=== PATIENT | female | born 1965 | race Caucasian/White ===

== ENCOUNTER 2018-11-15 10:52 | Emergency (ER) | payer MEDICAID ==
--- NOTE | 2018-11-15 13:24 | CT ---
CT HEAD WITHOUT CONTRAST: Date: 11/15/18 Multiple axial tomograms obtained through the head without IV enhancement. INDICATION: Fall with head injury. Comparison made to prior head CT from April 2012. FINDINGS: The ventricles have normal size and position. Increased CSF in the posterior fossa is again noted, suggesting posterior fossa subdural hygromas, st able. There is no evidence of acute hemorrhage or mass. There is opacification of the right maxillary sinus, which is suboptimally evaluated. Old bur hole in the left frontal bone from prior surgical procedure. Patient had a previous left subd ural hematoma, described on prior studies. There is opacification of the left middle ear cavity and left mastoid air cells. There is abnormal calcific density seen in both external auditory canals suggesting foreign material or possibly coarsely calcified debris. Recommend direct evaluation of the external auditory canals. IMPRESSION: 1. No acute intracranial process. 2. Chronic posterior fossa subdural hygromas appear stable. 3. Abnormal density in both external auditory canals. Assess for foreign material. 4. Mucosal edema in right maxillary sinus and diffuse opacification of the left middle ear and masto id air cells. POS: KELLI
== END 2018-11-15 12:20 | disposition home or self-care (01) ==
LOC: ERS 10:52
DX: S00.03XA Contusion of scalp, initial encounter (principal); H61.899 Other specified disorders of external ear, unspecified ear; W19.XXXA Unspecified fall, initial encounter
CPT/HCPCS: 70450

== ENCOUNTER 2024-01-28 09:21 | Inpatient (IN) | payer OTHER ==
[2024-01-28] MEDS ORDERED: Ondansetron PF 4 MG/2 ML Vial ONE (09:50)
[2024-01-28] MEDS ORDERED: Ketorolac Tromethamine 30 MG (1 mL) VIAL ONE (09:50)
[2024-01-28 09:59] LABS: #Basophils Less than 0.03 10x3/uL (0.0-0.2); %Basophils 0.2 % (0.0-1.0); %Eosinophils 1.9 % (0.0-10.0); %Lymphocytes 29.5 % (21.0-51.0); %Monocytes 9.5 % (0.0-10.0); %Neutrophils 58.7 % (42.0-75.0); Hematocrit 28.1 % (36.0-47.0); Hemoglobin 8.6 g/dL (12.0-16.0); Mean Corpuscular HGB CONC 30.6 g/dL (32.0-36.0); Mean Corpuscular Hemoglobin 25.5 pg (27.0-31.0); Mean Corpuscular Volume 83.4 fL (78.0-98.0); Mean Platelet Volume 9.6 fL (7.4-10.4); Platelet Count 233 10x3/uL (130-400); RBC Distribution Width 15.3 % (11.5-14.5); Red Blood Cell (RBC) Count 3.37 mill/uL (4.20-5.40)
[2024-01-28 10:15] LABS: ALT (SGPT) 15 U/L (8-55); AST (SGOT) 20 U/L (5-34); Albumin 3.4 g/dL (3.5-5.0); Alkaline Phosphatase 90 U/L (40-110); Anion Gap 14 mmol/L (10-20); BUN (Urea Nitrogen) 20 mg/dL (9.8-20.1); Bilirubin, Total 0.2 mg/dL (0.2-1.2); Calc. Creatinine Clearance 0 mL/min (70-130); Calcium 9.2 mg/dL (7.8-10.44); Carbon Dioxide 20 mmol/L (22-29); Chloride 111 mmol/L (98-107); Estimated GFR 82; Globulin 3.2 g/dL (2.4-3.5); Glucose 133 mg/dL (70-105); Lipase 46 U/L (8-78); Magnesium 1.7 mg/dL (1.6-2.6); Protein, Total 6.6 g/dL (6.0-8.3); Sodium 141 mmol/L (136-145)
[2024-01-28 10:26] LABS: Bacteria/HPF None Seen HPF (None Seen); Bilirubin Negative (Negative); Blood, Urine Negative (Negative); CAUTI Indications for Culture Dysuria,urgency,freq; Clarity Clear (Clear); Glucose, Urine (Dipstick) Normal (Negative); Ketone, Urine 10 mg/dL (Negative); Leukocyte Negative Leu/uL (Negative); Nitrite Negative (Negative); Protein, Urine (Dipstick) Negative (Neg-Trace); RBC/HPF 0-3 HPF (0-3); Specific Gravity, Urine 1.017 (1.002-1.036); Squamous Epithelial 0-3 HPF (0-3); Urobilinogen Normal mg/dL (Less than 2); WBC/HPF 0-3 HPF (0-3)
[2024-01-28 10:27] LABS: Urine Culture Reflex No No
[2024-01-28] MEDS ORDERED: Iopamidol-370 76% 500 ML MDV (1 ML CHARGE) ONE (11:32)
[2024-01-28] MEDS ORDERED: Acetaminophen 500 MG TAB PO PRN (14:34)
[2024-01-28] MEDS ORDERED: Ketorolac Tromethamine 30 MG (1 mL) VIAL IVP PRN (16:00)
[2024-01-28 16:44] LABS: Iron 15 ug/dL (50-170); Iron Binding Capacity, Total 351 mcg/dL (265-497)
[2024-01-28] MEDS: Lactated Ringer's 1,000 ML IV SCH (16:53)
[2024-01-28] MEDS: Polyethylene Glycol 3350 17 GM Packet PO SCH ×2 (16:53→17:51)
[2024-01-28] MEDS ORDERED: Ondansetron PF 4 MG/2 ML Vial IVP PRN (17:32)
[2024-01-28] MEDS ORDERED: Sodium Ferric Gluconate 125 MG in Sodium Chloride 0.9% 100 ML IVPB SCH (21:00)
[2024-01-28] MEDS: Simvastatin 10 MG TAB PO SCH (21:51)
[2024-01-28] MEDS: Senokot S 8.6-50 MG TAB PO SCH (21:51)
[2024-01-28] MEDS: clonazePAM 0.5 MG TAB PO SCH (21:51)
[2024-01-28] MEDS: OLANZapine 5 MG TAB PO SCH (21:51)
[2024-01-29 04:26] LABS: #Basophils Less than 0.03 10x3/uL (0.0-0.2); %Basophils 0.5 % (0.0-1.0); %Eosinophils 2.8 % (0.0-10.0); %Lymphocytes 31.5 % (21.0-51.0); %Monocytes 14.6 % (0.0-10.0); %Neutrophils 50.3 % (42.0-75.0); Mean Corpuscular HGB CONC 30.8 g/dL (32.0-36.0); Mean Corpuscular Hemoglobin 25.7 pg (27.0-31.0); Mean Corpuscular Volume 83.6 fL (78.0-98.0); Platelet Count 225 10x3/uL (130-400); RBC Distribution Width 15.3 % (11.5-14.5); Red Blood Cell (RBC) Count 3.11 mill/uL (4.20-5.40)
[2024-01-29 04:52] LABS: ALT (SGPT) 7 U/L (8-55); AST (SGOT) 16 U/L (5-34); Albumin 2.9 g/dL (3.5-5.0); Alkaline Phosphatase 75 U/L (40-110); Anion Gap 15 mmol/L (10-20); BUN (Urea Nitrogen) 15 mg/dL (9.8-20.1); Bilirubin, Total 0.3 mg/dL (0.2-1.2); Calc. Creatinine Clearance 65 mL/min (70-130); Calcium 8.9 mg/dL (7.8-10.44); Carbon Dioxide 21 mmol/L (22-29); Chloride 112 mmol/L (98-107); Estimated GFR 94; Globulin 2.6 g/dL (2.4-3.5); Glucose 72 mg/dL (70-105); Potassium 4.5 mmol/L (3.5-5.1); Protein, Total 5.5 g/dL (6.0-8.3); Sodium 143 mmol/L (136-145)
[2024-01-29] MEDS: Levothyroxine Sodium 25 MCG TAB PO SCH (05:48)
[2024-01-29] MEDS: Ferrous Sulfate 325 MG TAB PO SCH (09:48)
[2024-01-29] MEDS: Lisinopril 20 MG TAB PO SCH (09:51)
[2024-01-29] MEDS: Hydrochlorothiazide 25 MG TAB PO SCH (09:52)
[2024-01-29] MEDS: Enoxaparin 40 MG (0.4 mL) SYRINGE SC SCH (09:53)
[2024-01-29] MEDS: Sodium Ferric Gluconate 250 MG in Sodium Chloride 0.9% 250 ML 250 ML IVPB SCH (12:56)
[2024-01-29 16:37] VITALS: BP 113/76; TEMP 98
[2024-01-29 17:59] VITALS: BMI 24.4
== END 2024-01-29 18:02 | disposition home or self-care (01) | DRG 392 ==
LOC: ERS 09:21 → MSONC 15:11 → OBSVTOIN 01-29 16:51
PROVIDERS: ADMIT Family Medicine; ATTEND Family Medicine
DX: K59.00 Constipation, unspecified (principal); R19.09 Other intra-abdominal and pelvic swelling, mass and lump; N83.291 Other ovarian cyst, right side; K44.9 Diaphragmatic hernia without obstruction or gangrene; E03.9 Hypothyroidism, unspecified; I10 Essential (primary) hypertension; E78.5 Hyperlipidemia, unspecified; N92.6 Irregular menstruation, unspecified; F79 Unspecified intellectual disabilities; D50.9 Iron deficiency anemia, unspecified; Z79.899 Other long term (current) drug therapy; Z79.890 Hormone replacement therapy
CPT/HCPCS: 36415; 51701; 71046; 71260; 74177; 80053; 81001; 82728; 83540; 83550; 83605; 83690; 83735; 85025; 86304; 96374; 96375; G0378; J1885; J2405; J2916; J7050; J7120; Q9967